=== PATIENT | female | born 1965 | race Two or more races ===

== ENCOUNTER 2024-10-12 18:19 | Emergency (ER) | payer BC, SELFPAY ==
[2024-10-12 18:20] VITALS: BMI 31.2
[2024-10-12 18:27] VITALS: BP 169/80; PULSE 57; RESP 18; TEMP 36.9; O2SAT 98; BMI 27.8
--- NOTE | 2024-10-12 18:31 | EKG_ITS ---
[facility] (Formerly [facility])[3] Test Date: 2024-10-12 Pat Name: CHARISMA ARRINGTON Department: Room: - Gender: Female Assistant [employer]: : 1965 Requested By: Yohan Faustin Order Number: [id number] Reading MD: Yohan Faustin Measurements Intervals [place] Rate: 59 P: 25 [place]: 146 QRS: -27 QRSD: 94 T: 30 QT: 408 QTc: 405 Interpretive Statements SINUS BRADYCARDIA LOW QRS VOLTAGE IN PRECORDIAL LEADS [QRS DEFLECTION < 1.0 mV IN CHEST LEADS] POSSIBLE ANTERIOR MYOCARDIAL INFARCTION , OF INDETERMINATE AGE [30 ms Q WAVE IN V3/V4, OR R < 0.2 mV IN V4] No previous ECG available for comparison /store/S0/[id number].pdf
--- NOTE | 2024-10-12 18:32 | PD.EDRME ---
Rapid Medical Screening Exam RME Arrival date/time: 10/12/24 18:19 59 year old female present to ED for c/o RUQ for 1 day I have greeted and performed a focused initial assessment of this patient. A comprehensive ED assessment and evaluation of the patient, analysis of all test results, and completion of the medical decision making process will be conducted by additional ED providers. Chief Complaint: Abdominal Pain Time Seen by Provider: 10/12/24 18:23 Vital signs: Vital Signs Temperature 98.4 F 10/12/24 18:27 Pulse Rate 57 L 10/12/24 18:27 Respiratory Rate 18 10/12/24 18:27 Blood Pressure 169/80 H 10/12/24 18:27 Pulse Oximetry (%) 98 10/12/24 18:27 Oxygen Delivery Method Room Air 10/12/24 18:27
--- NOTE | 2024-10-12 18:41 | EDNOTE_ITS ---
ED Abdominal Pain RME/HPI General Chief Complaint: Abdominal Pain Stated complaint: GALL STONE PAIN TODAY Time seen by provider: 10/12/24 18:23 Arrival date/time: 10/12/24 18:19 RME / HPI RME / HPI narrative: 10/12/24 18:19 59 year old female present to ED for c/o RUQ for 1 day I have greeted and performed a focused initial assessment of this patient. A comprehensive ED assessment and evaluation of the patient, analysis of all test results, and completion of the medical decision making process will be conducted by additional ED providers. This section includes all my notes and documentations, including HPI, PE, and ED course. Swapnil Nelson MD HPI: 59 y/o female with SHx of Hysterectomy and Hx of chronic anemia, Dysmenorrhea, Leiomyoma of the uterus, and Type II DM presents to ED c/o RUQ abdominal pain and nausea x approximately 11 hours. Denies any vomiting, dysuria, or fever, but reports feeling warm. Patient has been eating normally, but denies any appetite. No other complaints. ROS: All negative except as documented in HPI. Physical Exam: General: Alert and oriented. Appears uncomfortable. Eyes: Conjunctivae and lids clear. ENT: No nasal congestion. Neck: Supple. Heart: RRR. Lungs: No respiratory distress. Good air movement. No rhonchi, wheezing, rales. Abdomen: Soft, RUQ tenderness, Positive Grimaldo's Sign. Normal bowel sounds. No distension. No rebound or guarding. Back: No CVA tenderness. Skin: Warm and dry. Neuro: Alert and oriented X 3. I reviewed all diagnostic test results. My interpretation of the EKG is sinus rhythm with no acute ST?T changes. My review of the US report is cholelithiasis, negative for cholecystitis, common bile duct 0.7 cm no common bile duct stones, Fatty liver. Blood tests and urine tests unremarkable. At this point, diagnoses include gallstones. Treatment here included Tylenol with Codeine and Zofran. With no relief, she was given Dilaudid 2 mg IM. Significant improvement noted. Recommended supportive care and more outpatient workup. Based on my best medical judgment, made decision no further evaluation or treatment indicated at this time. Patient understands and agrees to the discharge instructions customized and printed, see below. Discharge Instructions from Dr. Nelson: 1. After evaluation, your symptoms are due to gallstone(s).? You need gallbladder to help digest fatty foods. 2. So to prevent future attacks, avoid all fatty and oily and greasy and buttery and dairy foods.? This usually means take out and fast food restaurants. 3. Zofran for nausea/vomiting.? Tylenol codeine for severe pain.?? 4. See a private doctor on 10/14/2024 for recheck and further care. Ask to review all test results and official radiology reports, to make sure you receive all necessary follow-ups and monitoring. Ask for help seeing a general surgeon to discuss elective surgery. 5. Seek immediate medical care with intolerable pain, fever, or with any concerns. Swapnil Nelson MD Related Data Home Medications ?Medication ?Instructions ?Recorded ?Confirmed metformin 500 mg tablet 500 mg PO QDAY Diabetes #0 t abs 01/01/14 (Glucophage) Previous Rx's ?Medication ?Instructions ?Recorded acetaminophen 300 mg-codeine 30 mg 2 tab PO Q8H PRN pa in #20 tabs 10/12/24 tablet ondansetron 4 mg disintegrating 4 mg PO TID PRN nausea and 10/12/24 tablet vomiting 30 days #10 tabs Allergies Allergy/AdvReac Type Severity Reaction Status Date / Time No Known Allergies Allergy Verified 10/12/24 18:23 Review of Systems Review of Systems Systems Reviewed: All systems reviewed, normal except as documented Narrative Review of Systems: Refer to HPI above. Past Medical History Social History SMOKING STATUS: Never smoker ED Exam Narrative Physical exam: Refer to HPI above. Course Quality Measures none Orders Category Date Time Status EKG (ED ONLY) *Do not use* NOW Care 10/12/24 18:31 Completed EKG (ED Only) Stat Exams 10/12/24 18:31 Draft US gall bladder Stat Exams 10/12/24 19:13 Completed CBC Stat Lab 10/12/24 18:47 Completed CMP [Comprehensive Metabolic Panel] Stat Lab 10/12/24 18:47 Completed Lipase Stat Lab 10/12/24 18:47 Completed Magnesium Stat Lab 10/12/24 18:47 Completed Troponin I Stat Lab 10/12/24 18:47 Completed UA [Urinalysis] Stat Lab 10/12/24 19:00 Completed ACETAMINOPHEN w/COD 300-30 [Tylenol w/Cod #3] Med 10/12/24 18:42 Discontinued 2 tab PO X1 ONE HYDROmorphone INJ [Dilaudid Inj] Med 10/12/24 20:20 Discontinued 2 mg IVP X1 ONE Morphine Inj Med 10/12/24 21:10 Discontinued 10 mg IM X1 ONE Ondansetron Odt [Zofran Odt] Med 10/12/24 18:32 Discontinued 4 mg PO X1 ONE Vital Signs Vital signs: Vital Signs Temperature 98.4 F 10/12/24 18:27 Pulse Rate 57 L 10/12/24 18:27 Respiratory Rate 18 10/12/24 18:27 Blood Pressure 169/80 H 10/12/24 18:27 Pulse Oximetry (%) 98 10/12/24 18:27 Oxygen Delivery Method Room Air 10/12/24 18:27 Abdominal Pain MDM MDM Narrative MDM Narrative:: Scribe Attestation: Lawanda Mtz am scribing for and in the presence of Dr. Nelson. Provider Notation: Although this document has been carefully reviewed, there may still be some phonetic and other typographical errors. These errors are purely grammatical due to imperfections in the software program and should not be construed in any way to compromise the substance of the patient's medical care during this visit. 59 y/o female with SHx of Hysterectomy and Hx of chronic anemia, Dysmenorrhea, Leiomyoma of the uterus, and Type II DM presents to ED c/o RUQ abdominal pain and nausea x approximately 11 hours. Denies any vomiting, dysuria, or fever, but reports feeling warm. Patient has been eating normally, but denies any appetite. No other complaints. Patient data External records reviewed:: [facility] previous records (No prior ED records to review.) Clinical information provided by:: patient Social determinants that could affect healthcare access:: none Patient has the following chronic illnesses:: chronic anemia, Dysmenorrhea, Leiomyoma of the uterus, and Type II DM How is presenting disease/condition affected by chronic disease/condition?: exacerbated by Evaluation data The following diagnostics were reviewed and interpreted by me:: lab results, radiology exam(s) and EKG tracing(s) Lab and/or radiology exams considered but not ordered:: None Interpretation Summary: My review of the US report is cholelithiasis, negative for cholecystitis, common bile duct 0.7 cm no common bile duct stones, Fatty liver. Medications / Prescriptions Medications or Prescriptions considered but not ordered:: None Medication administrations:: Medication Administration History Discontinued Medications Acetaminophen/Codeine Phosphate (Acetaminophen W/Cod 300-30 Tablet) 2 tab PO X1 ONE Stop: 10/12/24 18:43 Last Admin: 10/12/24 18:55 Dose: 2 tab Documented By: BELL Hydromorphone HCl (Hydromorphone Inj 2 Mg/Ml Vial) 2 mg IVP X1 ONE Stop: 10/12/24 20:21 Morphine Sulfate (Morphine Sulf Inj 10 Mg/Ml Vial) 10 mg IM X1 ONE Stop: 10/12/24 21:11 Last Admin: 10/12/24 21:12 Dose: Not Given Documented By: SE Non-Admin Reason: Cancelled by Provider Ondansetron HCl (Ondansetron Odt 4 Mg Tabrap) 4 mg PO X1 ONE; Protocol Stop: 10/12/24 18:33 Last Admin: 10/12/24 18:55 Dose: 4 mg Documented By: BELL Tylenol with Codeine Phosphate and Zofran and Dilaudid Consultations Consultation(s) initiated? (list below): No Diagnosis Differential diagnosis abdominal pain: abdominal pain, constipation, diverticulitis, gastroenteritis, pancreatitis and other (acute cholecystitis vs choledocholithiasis) Most likely diagnosis given after review of the tests above:: Gallstones Admission Indicated Admission indicated?: not indicated Explain why admission is indicated or not indicated:: With significant improvement, there was no indication for admission. Admission Request Was there a request for admission?: No Disposition Plan Disposition Plan: Discharge Discharge Attestation Discharge Attestation: The patient and all family members were given an opportunity to ask questions and understood the discharge instructions. Discharge instructions specifically effects, indications for sooner follow up or return to the emergency department, and the expected course of current diagnosis. Patient condition: Stable Discharge Plan Plan Patient Disposition: HOME (Self Care) Prescriptions/Referrals Prescriptions/Med Rec: New acetaminophen-codeine 300-30 mg tablet 2 tab PO Q8H MDD 6 PRN (Reason: pain) Qty: 20 0RF ondansetron 4 mg tablet,disintegrating 4 mg PO TID PRN (Reason: nausea and vomiting) 30 Days Qty: 10 0RF No Action metformin [Glucophage] 500 MG tablet 500 mg PO QDAY Qty: 0 Referrals: Meeta Olivarez MD [Primary Care Provider] - In 1 week Problem List Clinical Impression: Gallstones Patient/Caregiver Discharge Instructions Discharge Activity: activity as tolerated Education Materials: ED Gallstones with Biliary Colic Additional Instructions: Discharge Instructions from Dr. Nelson: 1. After evaluation, your symptoms are due to gallstone(s).? You need gallbladder to help digest fatty foods. 2. So to prevent future attacks, avoid all fatty and oily and greasy and buttery and dairy foods.? This usually means take out and fast food restaurants. 3. Zofran for nausea/vomiting.? Tylenol codeine for severe pain.?? 4. See a private doctor on 10/14/2024 for recheck and further care. Ask to review all test results and official radiology reports, to make sure you receive all necessary follow-ups and monitoring. Ask for help seeing a general surgeon to discuss elective surgery. 5. Seek immediate medical care with intolerable pain, fever, or with any concerns. Instrucciones de jaclyn del Dr. Nelson: 1. Despu?s de la evaluaci?n, elton s?ntomas se deben a c?lculos biliares.? Necesitas la ves?cula biliar para ayudar a digerir los alimentos grasos. 2. Por lo tanto, para prevenir futuros ataques, evite todos los alimentos grasosos, aceitosos, mantecosos y l?cteos.? Generalmente esto significa restaurantes de comida para llevar y comida r?pida. 3. Zofran para n?useas/v?mitos.? Code?na Tylenol para el dolor intenso. 4. Consulte a un m?dico privado el 14/10/2024 para un nuevo control y cuidados adicionales. Solicite revisar todos los resultados de pruebas e informes oficiales de radiolog?a, para asegurarse de recibir todos los seguimientos y controles necesarios. Pida ayuda para consultar con un cirujano general para hablar sobre dagoberto cirug?a electiva. 5. Busque atenci?n m?dica inmediata si tiene dolor intolerable, fiebre o cualqu ier inquietud. Print Language: Kosovan Stand Alone Forms: Kristi Award Info., Patient Portal Info Letter
[2024-10-12] MEDS: ACETAMINOPHEN w/COD 300-30 TABLET 2 TAB PO (18:55)
[2024-10-12] MEDS: ONDANSETRON ODT 4 MG TABRAP PO ×2 (18:55→21:28)
[2024-10-12 19:07] LABS: Basophils % (Auto) 0 % (0-2.5); Eosinophils # (Auto) 0.2 Thou/mm3 (0.0-0.5); Eosinophils % (Auto) 2 % (0-10); Hematocrit 38.2 % (36.0-46.0); Hemoglobin 12.7 g/dL (12.0-16.0); Immature Granulocytes % (Auto) 0 % (0-0); Immature Granulocytes Auto 0.02 Thou/mm3 (0.00-0.00); Lymphocytes # (Auto) 3.1 Thou/mm3 (1.0-4.8); Lymphocytes % (Auto) 35 % (10-50); Mean Corpuscular HGB Conc 33.2 g/dl (31.0-37.0); Mean Corpuscular Hemoglobin 29.5 pg (25.0-35.0); Mean Corpuscular Volume 89 fL (80-100); Monocytes # (Auto) 0.5 Thou/mm3 (0.0-0.8); Monocytes % (Auto) 5 % (0-12); Neutrophils # (Auto) 5.3 Thou/mm3 (1.8-7.7); Neutrophils % (Auto) 58 % (37-80); Nucleated Red Blood Cell % 0 /100 WBC (0); Platelet Count 314 Thou/mm3 (140-440); RDW Standard Deviation 44.1 fL (36.4-46.3); White Blood Count 9.1 Thou/mm3 (3.6-11.0)
--- NOTE | 2024-10-12 19:13 | XR_ITS ---
Examination: Abdomen sonogram, Limited Date and time of exam: October 12, 2024 1934 hrs. Indications: Epigastric pain beginning today, history gallstones Technique: Real-time aranda scale transabdominal sonographic images of the upper abdomen obtained. Findings: 33 mm gallstone Normal gallbladder wall 0.3 cm Normal 0.7 cm no stones Pancreatic head 2.9 cm Liver 16.1 cm fatty infiltration Normal hepatopedal portal venous flow Patent IVC Impression: Cholelithiasis, negative for cholecystitis Common bile duct 0.7 cm no common bile duct stones Fatty liver
[2024-10-12 19:19] LABS: Collection Type, Urine Voided; RBC,Urine 0 /hpf (0-3); WBC,Urine 0 /hpf (0-5)
[2024-10-12 19:32] LABS: Alanine Aminotransferase 20 U/L (10-49); Albumin, Serum 4.4 gm/dL (3.4-4.8); Albumin/Globulin Ratio 1.4 (1.2-2.2); Alkaline Phosphatase 71 U/L (46-116); Anion Gap 8 (7-16); Aspartate Amino Transferase 26 U/L (0-34); BUN/Creatinine Ratio 16 Ratio (12-20); Bilirubin,Total 0.4 mg/dL (0.3-1.2); Blood Urea Nitrogen 16 mg/dL (9-23); Calcium 8.9 mg/dL (8.3-10.6); Calcium (Corrected) 8.9 mg/dL (8.5-10.1); Carbon Dioxide 26.5 mMol/L (20.0-31.0); Chloride 106 mMol/L (98-107); Estimated Creatinine Clearance 40.4 mL/min (>60); Globulin 3.1 gm/dL (2.3-3.5); Glucose 193 mg/dL (74-106); Lipase 55 U/L (12-53); Magnesium 2.2 mg/dL (1.6-2.6); Osmolality,Calculated 285 (275-295); Potassium 3.9 mMol/L (3.4-5.1); Sodium 140 mMol/L (136-145); Total Protein 7.5 gm/dL (5.7-8.2); Troponin I < 0.020 ng/mL (0.0-0.045); eGFR > 60 See Note
[2024-10-12 19:45] LABS: Bacteria,Urine Rare; Bilirubin,Urine Negative (Negative); Blood,Urine Negative (Negative); Clarity,Urine Clear (Clear/Hazy); Color,Urine Lt-Yellow (Lt Yel-Yel); Glucose, Urine 4+ (Negative); Ketones,Urine Negative (Negative); Leukocyte Esterase,Urine Negative (Negative); Nitrite,Urine Negative (Negative); PH,Urine 5.5 (5.0-7.0); Protein,Urine Negative (Neg - Trace); Specific Gravity,Urine 1.033 (1.001-1.035); Squamous Epithelial Cell,Urine 2 /hpf (0-5); Urobilinogen,Urine Negative mg/dL (0.0-1.0)
[2024-10-12] MEDS: HYDROmorphone INJ 2 MG/ML VIAL IVP (21:23)
== END 2024-10-12 21:38 | disposition home or self-care (01) ==
PROVIDERS: Physician Assistant; Emergency Provider Emergency Medicine; PCP Family Medicine
DX: K80.20 Calculus of gallbladder without cholecystitis without obstruction (principal); R00.1 Bradycardia, unspecified
CPT/HCPCS: 36415; 76705; 80053; 81001; 83690; 83735; 84484; 85025; 93005; 99284; J3490; Q0162; A9270